=== PATIENT | male | born 1970 | race Caucasian/White ===

== ENCOUNTER → 2017-08-19 | Outpatient (CLI) | payer BC ==
[~2017-08-19] MED LIST: DOXY10CA PO; MOTR200T44 PO; PERCOCET PO; PROT1TAB2 PO; SIMV10TA2 PO
--- NOTE | 2017-08-19 15:34 | REP ---
Left wrist: Four views. History: Injury 2 weeks ago with persistent pain at the ulnar aspect. Findings: Four views of the left wrist are obtained. There is mild bony hypertrophy on the lateral film at what appears to be the second or third carpal-metacarpal articulation. This is compatible with early osteoarthritis. No fracture or subluxation is seen. Impression: Mild osteoarthritic hypertrophy at the second or third carpal metacarpal articulation seen only on lateral film. Otherwise negative. No fracture seen. Signed by Migue Ivory MD 08/19/2017 04:16 P
== END ==
LOC: M WUC 12:29
PROVIDERS: ATTEND Physician Assistant
DX: M19.032 Primary osteoarthritis, left wrist (principal)

== ENCOUNTER → 2019-03-21 | Outpatient (REF) | LOC: M LAB 16:08 | DX: Z02.89 Encounter for other administrative examinations ==

== ENCOUNTER → 2019-03-22 | Outpatient (REF) ==
--- NOTE | 2019-03-22 15:47 | REP ---
Chest, single AP view, the patient supine, click. See study: There is opacification of the left left lung and a large left pleural effusion with only a small portion of the left lung remains aerated. There are metallic fragments superimposed over the left hemithorax i inferomedially. No definite pneumothorax is identified, however, there is subcutaneous emphysema in the neck on the left. There are unusual air densities above the right clavicle within the soft tissues, of uncertain significance, possibly subcutaneous emphysema on the right. There is right perihilar atelectasis. Right lung is otherwise unremarkable. No fractures are identified. Cardiac size is upper normal. Electronically Signed by Jacob Mcgowan MD 03/22/2019 03:38 P
== END ==
LOC: M RAD 12:34 → M LAB 12:34